=== PATIENT | male | born 1995 | race Caucasian/White ===

== ENCOUNTER 2019-08-12 16:39 | Emergency (ER) | payer OTHER ==
[~2019-08-12] VITALS: Ht 177.8 cm; Wt 58.1 kg
[2019-08-12] MEDS ORDERED: ACETAMINOPHEN 325 MG TABLET PO ONE (17:30)
--- NOTE | 2019-08-12 17:35 | NUR ---
PT REC'D MEDICATION ORDERED.
[2019-08-12] MEDS ORDERED: ACETAMINOPHEN ES 500 MG TABLET ONE (17:37)
[2019-08-12 18:12] LABS: CALCIUM, SERUM 9.3 mg/dL (8.5-10.1); CREATININE 1.2 mg/dL (0.6-1.3); POTASSIUM 3.6 mmol/L (3.5-5.1)
[2019-08-12 18:22] LABS: BASOPHILS % (AUTO) 0.1 % (0.0-2.0); EOSINOPHILS % (AUTO) 0.1 % (0.0-6.0); HEMATOCRIT 49 % (39-51); HEMOGLOBIN 16.3 g/dL (13.5-17.5); LYMPHOCYTES # (AUTO) 1.3 /CMM (0.8-4.8); LYMPHOCYTES % (AUTO) 17.6 % (20.0-44.0); MEAN CORPUSCULAR HGB CONC 34 g/dl (31.0-36.0); MEAN CORPUSCULAR VOLUME 88 fL (80-96); MONOCYTES # (AUTO) 0.5 /CMM (0.1-1.30); MONOCYTES % (AUTO) 6.3 % (2.0-12.0); NEUTROPHILS # (AUTO) 5.8 /CMM (1.8-8.9); NEUTROPHILS % (AUTO) 75.9 % (43.0-81.0); PLATELET COUNT (AUTO) 251 /CMM (150-450); RED BLOOD CELL COUNT(AUTO) 5.56 MIL/uL (4.5-6.0); WHITE BLOOD COUNT (AUTO) 7.6 K/uL (4.3-11.0)
[2019-08-12 18:27] LABS: ALBUMIN 4.3 g/dL (3.4-5.0); BILIRUBIN,TOTAL 0.9 mg/dL (0.2-1.0); TOTAL PROTEIN, SERUM 7.6 g/dL (6.4-8.2)
--- NOTE | 2019-08-12 18:50 | NUR ---
PT C/O ABD PAIN. NOTIFIED. NEW ORDERS GIVEN AND CARRIED OUT.
[2019-08-12] MEDS ORDERED: MAG HYDROX/AL HYDROX/SIMETH 30 ML UDC ONE (18:59)
[2019-08-12] MEDS ORDERED: MAG HYDROX/AL HYDROX/SIMETH 30 ML UDC PO ONE (19:00)
--- NOTE | 2019-08-12 19:25 | NUR ---
Patient discharged to home in stable condition. Written and verbal after care instructions given. Patient verbalizes understanding of instruction AND RX. PT AMBULATED OUT WITH A STEADY GAIT. PT TOLD THAT HE WILL BE CALLED IF HE HAS A POS COVID SWAB. VSS. PT AMBULATED OUT WITH A STEADY GAIT.
[2019-08-12 19:27] VITALS: BP 129/83
== END 2019-08-12 19:25 | disposition home or self-care (01) ==
LOC: ER 16:48
DX: B34.9 Viral infection, unspecified (principal); J45.909 Unspecified asthma, uncomplicated; K21.9 Gastro-esophageal reflux disease without esophagitis; K58.9 Irritable bowel syndrome, unspecified; F41.9 Anxiety disorder, unspecified; Z20.828 Contact with and (suspected) exposure to other viral communicable diseases
CPT/HCPCS: 36415; 71045; 80053; 85025; 85378; 99284; C9803; U0003